=== PATIENT | female | born 1950 | race Caucasian/White ===

== ENCOUNTER → 2016-08-22 | Outpatient (CLI) | payer MEDICARE, BC | LOC: RAD 10:53 | DX: R55 Syncope and collapse (principal); I65.21 Occlusion and stenosis of right carotid artery ==

== ENCOUNTER → 2016-11-02 | Outpatient (CLI) | payer MEDICARE, BC | LOC: RAD 09:22 | DX: J31.0 Chronic rhinitis (principal) ==

== ENCOUNTER → 2016-11-16 | Outpatient (CLI) | payer MEDICARE, BC | LOC: RAD 08:35 | DX: Z12.31 Encounter for screening mammogram for malignant neoplasm of breast (principal) | CPT/HCPCS: G0202 ==

== ENCOUNTER → 2017-12-12 | Outpatient (CLI) | payer MEDICARE, OTHER | LOC: MAMMO 12-05 11:30 | DX: Z12.31 Encounter for screening mammogram for malignant neoplasm of breast (principal) ==

== ENCOUNTER → 2018-04-04 | Outpatient (CLI) | payer MEDICARE, OTHER | LOC: RAD 10:34 → MAMMO 10:45 | DX: Z13.820 Encounter for screening for osteoporosis (principal) ==

== ENCOUNTER → 2019-01-08 | Outpatient (CLI) | payer MEDICARE, OTHER ==
[2018-11-07 12:09] VITALS: BP 140/65
[~2019-01-08] MED LIST: ASPIRIN E.C. 8181 MG; BIOTIN10000 MCG PO; CLARITIN LIQUI-10 MG PO; COUMADIN 1MG1 MG/TAB PO; COUMADIN 4MG4 MG/TAB PO; CRESTOR20 MG PO; FLONASE ALLERG9.9 ML NS; FUROSEMIDE20 MG PO; METOPROLOL SUCC25 M1 PO; MULTIVITAMIN1 SGL PO; POTASSIUM GLUC550 M1 PO; PREMIERPRO RX5 MG/GM OP; PREVACID15 M1 PO; VITAMIN C500 M7 PO
== END ==
LOC: MAMMO 10:45
DX: Z12.31 Encounter for screening mammogram for malignant neoplasm of breast (principal)

== ENCOUNTER → 2020-02-13 | Outpatient (CLI) | payer MEDICARE, OTHER ==
[2018-11-07 12:09] VITALS: BP 140/65
== END ==
LOC: MAMMO 09:55
DX: Z12.31 Encounter for screening mammogram for malignant neoplasm of breast (principal)

== ENCOUNTER → 2020-03-18 | Outpatient (CLI) | payer MEDICARE ==
[2018-11-07 12:09] VITALS: BP 140/65
== END ==
LOC: MAMMO 09:45
DX: Z13.820 Encounter for screening for osteoporosis (principal); Z78.0 Asymptomatic menopausal state

== ENCOUNTER → 2020-08-25 | Outpatient (CLI) | payer MEDICARE ==
[2018-11-07 12:09] VITALS: BP 140/65
[2020-08-25 11:23] LABS: PROTHROMBIN TIME 17.7 SECONDS (9.0-12.0)
== END ==
LOC: LAB 10:50
PROVIDERS: Family Medicine
DX: Z79.01 Long term (current) use of anticoagulants (principal)

== ENCOUNTER → 2021-03-23 | Outpatient (CLI) | payer MEDICARE, OTHER | LOC: MAMMO 10:44 | DX: Z12.31 Encounter for screening mammogram for malignant neoplasm of breast (principal) ==

== ENCOUNTER → 2022-02-07 | Outpatient (CLI) | payer MEDICARE, OTHER ==
[2022-02-07 11:09] LABS: BASO # 0.04 K/mm3 (0.02-0.10); EOS # 0.13 K/mm3 (0.04-0.40); EOS % 2.8 % (1.0-5.0); HEMATOCRIT 38.8 % (37.0-47.0); HEMOGLOBIN 12.9 g/dL (12.5-16.0); LYMPH# 1.08 K/mm3 (1.50-4.00); MEAN CELL VOLUME 94 fl (78-100); MEAN CORPUSCULAR HEMOGLOBIN 31 pg (27-31); MEAN CORPUSCULAR HGB CONC 33 g/dL (33-37); MEAN PLATELET VOLUME 9.7 fl (7.4-10.4); MONO # 0.48 K/mm3 (0.20-0.80); NEU # 2.95 K/mm3 (1.40-6.50); PLATELET COUNT 253 K/mm3 (130-400); RED BLOOD COUNT 4.12 M/mm3 (4.10-5.30); RED CELL DISTRIBUTION WIDTH 11.8 % (11.5-14.5); WHITE BLOOD COUNT 4.7 K/mm3 (4.8-10.8)
[2022-02-07 11:15] LABS: ALBUMIN 4.3 g/dL (3.4-4.8); POTASSIUM 4.4 mmol/L (3.5-5.1)
[2022-02-07 11:16] LABS: CALCIUM 9.6 mg/dL (8.3-10.5)
[2022-02-07 11:17] LABS: TOTAL PROTEIN 6.7 g/dL (6.2-8.1)
[2022-02-07 11:19] LABS: TOTAL BILIRUBIN 0.8 mg/dL (0.2-1.2)
== END ==
LOC: LAB 10:37
PROVIDERS: Family Medicine
DX: Z00.00 Encounter for general adult medical examination without abnormal findings (principal); M25.551 Pain in right hip; M25.552 Pain in left hip; E78.5 Hyperlipidemia, unspecified; K21.00 Gastro-esophageal reflux disease with esophagitis, without bleeding; I25.10 Atherosclerotic heart disease of native coronary artery without angina pectoris; M48.061 Spinal stenosis, lumbar region without neurogenic claudication; I10 Essential (primary) hypertension; I50.32 Chronic diastolic (congestive) heart failure

== ENCOUNTER → 2022-02-10 | Outpatient (CLI) | payer MEDICARE, OTHER | LOC: RAD 10:15 | DX: R07.9 Chest pain, unspecified (principal) ==

== ENCOUNTER → 2024-04-08 | Outpatient (RCR) | payer MEDICARE, OTHER ==
[~2024-04-08] MED LIST changes: +PROTONIX20 M1 PO
== END | disposition home or self-care (01) ==
LOC: PT
DX: M50.30 Other cervical disc degeneration, unspecified cervical region (principal)

== ENCOUNTER 2024-04-12 13:23 | Outpatient (RCR) | payer MEDICARE, OTHER | END 2024-05-09 | disposition home or self-care (01) | LOC: PT | DX: M50.30 Other cervical disc degeneration, unspecified cervical region (principal) ==